=== PATIENT | female | born 1975 | race Caucasian/White ===

== ENCOUNTER 2017-03-13 12:56 | Emergency (ER) | payer OTHER ==
[~2017-03-13] VITALS: Ht 154.9 cm; Wt 83.4 kg
[2017-03-13] MEDS ORDERED: PERM5CRE11 TOPICAL (13:19)
--- NOTE | 2017-03-13 13:21 | PD ---
HPI Chief Complaint: Skin Problem Time Seen by Provider: 13:10 Travel History International Travel<30 days: No Contact w/Intl Traveler<30days: No Traveled to known affect area: No History of Present Illness HPI 41-year-old female presents to the emergency room for evaluation of itchy rash to her chest, shoulders, neck, back, and face for the past 3-4 weeks. Patient states she first noticed it after putting on scrubs at work. States it is extremely itchy and when she touches any part of her skin, more of the rash erupts. She has been applying apple cider vinegar. It is worse in the sunlight. Denies any recent antibiotic use. Only history of hypothyroidism. Patient is concerned that he may be contagious because she works with babies at the hospital. States she has noticed some lesions on her daughter and son. She went to her primary care physician who referred her to a nurse sane but her appointment is not for another 9 days. PFSH Past Medical History ADD: Yes Cancer: No Cardiovascular Problems: Yes (MURMUR) Diabetes: Yes Diminished Hearing: No Hepatitis: No Hiatal Hernia: No Thyroid Disease: No Menopausal: No Social History Alcohol Use: No Tobacco Use: No Substance Use: No Allergies-Medications (Allergen,Severity, Reaction): Coded Allergies: Codeine (Verified Allergy, Severe, VOMITING, RASH, 03/24/15) Oxycodone (Verified Allergy, Severe, VOMITING, RASH, 03/24/15) Tylox (Verified Allergy, Severe, 03/24/15) Reported Meds & Prescriptions Reported Meds & Active Scripts Active Elimite Topical (Permethrin) 5% Cream 1 Applic TOPICAL ONCE Reported Synthroid (Levothyroxine Sodium) 25 Mcg Tab 25 Mcg PO DAILY Review of Systems Except as stated in HPI: all other systems reviewed are Neg Physical Exam Narrative GENERAL: Well-nourished, well-developed female in no acute distress. Afebrile. Ambulatory. SKIN: Focused skin assessment warm/dry. There are excoriated maculopapular lesions to the chest, bilateral shoulders, neck, and face. No burrowing or breakfast, lunch, dinner sign. No symptoms anywhere below the chest on the body. HEAD: Normocephalic. EYES: No scleral icterus. No injection or drainage. NECK: Supple, trachea midline. No JVD or lymphadenopathy. CARDIOVASCULAR: Regular rate and rhythm without murmurs, gallops, or rubs. RESPIRATORY: Breath sounds equal bilaterally. No accessory muscle use. PSYCHIATRIC: No delusional thought processes. No hallucinations. Data Data Last Documented VS Vital Signs Date Time Temp Pulse Resp B/P Pulse Ox O2 Delivery O2 Flow Rate FiO2 03/13/17 13:22 98.4 58 18 122/63 97 MDM Medical Decision Making Medical Screen Exam Complete: Yes Emergency Medical Condition: Yes Medical Record Reviewed: Yes Differential Diagnosis Scabies, molluscum contagiosum, immunodeficiency rash, urticaria Narrative Course 41-year-old female presents to the emergency room for evaluation of itchy rash to her chest, shoulders, face, neck, and upper back for the past 3-4 weeks. Rash seems to be spreading based on where patient touches. States her daughter and son have similar, though not as severe, lesions. Vital signs stable. Physical exam reveals excoriated maculopapular rash to aforementioned areas. No rash below the chest. This rash does not appear to be febrile exanthem, urticaria, allergic reaction, or scabies. Could be a viral rash or psychosomatic. Patient will be discharged with prescription for Elimite just in case and told to follow up with her nurse sane as planned. Told to return for worsening symptoms. She understands and agrees to plan. Diagnosis Primary Impression: Excoriated rash Referrals: [facility] Patient Instructions: Acute Rash (ED), General Instructions Additional Instructions: Rest and drink plenty of fluids. Apply cream to the entire body. Leave on overnight. Wash off in the morning. Wash all bedding and clothing in hot water. Follow-up with a nurse sane. Return to the emergency room for worsening symptoms. Med/Other Pt SpecificInfo: Prescription(s) given Scripts Permethrin Topical (Elimite Topical)5% Cream1 Applic TOPICAL ONCE #1 TUBE Ref 0 Prov:Farida Whitaker MD 03/13/17 Disposition: 01 DISCHARGE HOME Condition: Stable Susnaa Sharp Mar 13, 2017 13:21
[2017-03-13 13:22] VITALS: BP 122/63; PULSE 58; RESP 18; TEMP 98.4; O2SAT 97
[2017-03-13] MEDS ORDERED: SYNT25TA PO (13:27)
== END 2017-03-13 13:40 | disposition home or self-care (01) ==
LOC: PHEFT 12:56
DX: R21 Rash and other nonspecific skin eruption (principal); E03.9 Hypothyroidism, unspecified; E11.9 Type 2 diabetes mellitus without complications; R01.1 Cardiac murmur, unspecified
CPT/HCPCS: 99283